=== PATIENT | female | born 1950 | race Two or more races ===

== ENCOUNTER → 2018-05-14 | Outpatient (CLI) | payer OTHER ==
[~2018-05-14] MED LIST: ALPRAZOLAM1 MG PO; CIPRO500 MG PO; FLAGYL500MG PO; GLIMEPIRIDE4 MG PO; PRILOSEC20 MG PO; TENORMIN50 M1 PO; XANAX1 MG PO; ZANTAC300 MG PO
== END | disposition home or self-care (01) ==
LOC: RAD 501 13:09
DX: N20.1 Calculus of ureter (principal)

== ENCOUNTER 2018-05-23 10:31 | Outpatient (CLI) | payer OTHER | END 2018-05-23 10:38 | disposition home or self-care (01) | LOC: TOM 10:31 | DX: N20.0 Calculus of kidney (principal) ==

== ENCOUNTER 2020-08-21 14:03 | Inpatient (IN) | payer OTHER ==
[~2020-08-21] VITALS: Ht 160 cm; Wt 72.6 kg
--- NOTE | 2020-08-21 14:13 | NUR ---
PACIENTE ALERTA Y ORIENTADA EN JESSE FILEMON ESFERAS, REFIERE DOLOR Y LAWRENCE AL ORINAR DESDE RIKY.
--- NOTE | 2020-08-21 16:43 | NUR ---
BLOOD SAMPLES ARE TAKEN FROM PATIENT'S LEFT ARM FOR LAB ORDERS. TORADOL IS INJECTED INTO PATIENT'S UPPER RIGHT BUTTOCK.
--- NOTE | 2020-08-21 19:26 | NUR ---
IV LINE IS STARTED ON PATIENT'S RIGHT ARM AND IV MEDS AND IVF FLUIDS ARE ADMINISTERED ACCORDINGLY.
[2020-08-30] MEDS ORDERED: NIFEDIPINE ER90 M1 (13:13)
[2020-08-30] MEDS ORDERED: BUSPIRONE HCL15 MG (13:13)
[2020-08-30] MEDS ORDERED: OMEPRAZOLE40 MG (13:13)
[2020-08-30] MEDS ORDERED: ST. JOSEPH ASPI81 M2 (13:13)
[2020-08-30] MEDS ORDERED: ATORVASTATIN CA20 MG (13:13)
[2020-08-30] MEDS ORDERED: METFORMIN HCL500 M4 (13:13)
[2020-08-30] MEDS ORDERED: LEVETIRACETAM250 MG (13:14)
[2020-08-30] MEDS ORDERED: VASOTEC20 MG (13:14)
[2020-08-30] MEDS ORDERED: GABAPENTIN100 M2 (13:14)
[2020-08-30] MEDS ORDERED: SERTRALINE HCL100 MG (13:14)
[2020-08-30] MEDS ORDERED: AMITRIPTYLINE H10 MG (13:14)
== END 2020-08-31 18:33 | disposition home or self-care (01) | DRG 694 ==
LOC: ER 14:03 → SURH 22:45 → SEC-K 22:45 → SURG 08-22 01:04 → SURH 08-22 11:28
PROVIDERS: ADMIT Internal Medicine; ATTEND Internal Medicine
PROC: BW21ZZZ Computerized Tomography (CT Scan) of Abdomen and Pelvis (ICD-10-PCS; 2020-08-21)
PROC: 02HV33Z Insertion of Infusion Device into Superior Vena Cava, Percutaneous Approach (ICD-10-PCS; principal; 2020-08-24)
DX: N20.0 Calculus of kidney (principal); N39.0 Urinary tract infection, site not specified; R31.9 Hematuria, unspecified; E11.65 Type 2 diabetes mellitus with hyperglycemia; I10 Essential (primary) hypertension; E78.5 Hyperlipidemia, unspecified; Z87.442 Personal history of urinary calculi; Z20.822 Contact with and (suspected) exposure to COVID-19

== ENCOUNTER 2020-10-30 23:24 | Emergency (ER) | payer OTHER ==
[~2020-10-30] VITALS: Ht 147.3 cm; Wt 54.4 kg
[~2020-10-30 23:24] MED LIST changes: +AMITRIPTYLINE H10 MG; +ATORVASTATIN CA20 MG; +BUSPIRONE HCL15 MG; +GABAPENTIN100 M2; +LEVETIRACETAM250 MG; +METFORMIN HCL500 M4; +NIFEDIPINE ER90 M1; +OMEPRAZOLE40 MG; +SERTRALINE HCL100 MG; +ST. JOSEPH ASPI81 M2; +VASOTEC20 MG
== END 2020-10-31 05:00 | disposition left against medical advice (07) ==
LOC: ER 23:24
DX: N10 Acute pyelonephritis (principal); N13.2 Hydronephrosis with renal and ureteral calculous obstruction; M54.5 Low back pain

== ENCOUNTER 2020-12-16 13:37 | Outpatient (CLI) | payer OTHER | END 2020-12-16 13:39 | disposition home or self-care (01) | LOC: LAB 13:37 | PROVIDERS: ATTEND Urology | DX: N30.00 Acute cystitis without hematuria (principal); B96.29 Other Escherichia coli [E. coli] as the cause of diseases classified elsewhere ==

== ENCOUNTER 2021-01-28 10:30 | Inpatient (IN) | payer OTHER ==
[~2021-01-28] VITALS: Ht 149.9 cm; Wt 54.4 kg
[2021-02-02] MEDS ORDERED: ATORVASTATIN CA20 MG (09:47)
[2021-02-02] MEDS ORDERED: AMITRIPTYLINE H10 MG (09:47)
[2021-02-02] MEDS ORDERED: VASOTEC20 MG (09:47)
== END 2021-02-04 10:47 | disposition home or self-care (01) | DRG 694 ==
LOC: SURH 02-02 06:27 → O/R 02-02 06:27 → SURH 02-02 07:00
PROVIDERS: ADMIT Urology; ATTEND Urology
PROC: BT1FZZZ Fluoroscopy of Left Kidney, Ureter and Bladder (ICD-10-PCS; 2021-02-02)
PROC: 0TF48ZZ Fragmentation in Left Kidney Pelvis, Via Natural or Artificial Opening Endoscopic (ICD-10-PCS; principal; 2021-02-02 07:00)
PROC: 30233N1 Transfusion of Nonautologous Red Blood Cells into Peripheral Vein, Percutaneous Approach (ICD-10-PCS; 2021-02-03)
DX: N20.0 Calculus of kidney (principal); E11.65 Type 2 diabetes mellitus with hyperglycemia; Z20.822 Contact with and (suspected) exposure to COVID-19; Z79.84 Long term (current) use of oral hypoglycemic drugs

== ENCOUNTER 2021-02-07 12:12 | Outpatient (CLI) | payer OTHER | END 2021-02-07 12:13 | disposition home or self-care (01) | LOC: RAD 12:12 | PROVIDERS: ATTEND Urology | DX: N20.0 Calculus of kidney (principal) ==